=== PATIENT | female | born 1960 | race Caucasian/White ===

== ENCOUNTER 2023-07-20 14:06 | Emergency (ER) | payer MEDICARE, MEDICAID, SELFPAY ==
--- NOTE | 2023-07-20 14:22 | XRR_ITS ---
PROCEDURE INFORMATION: Exam: XR Chest Exam date and time: 07/20/2023 2:46 PM Age: 63 years old Clinical indication: Screening exam; Other screening; Additional info: HX of copd TECHNIQUE: Imaging protocol: Radiologic exam of the chest. Views: 1 view. COMPARISON: No relevant prior studies available. FINDINGS: Lungs: Both lungs demonstrate diffuse hyperinflation along with chronic interstitial coarsening. A 1 cm rounded granuloma involves the left upper lung field but I see no other mass or infiltrate. Pleural spaces: Unremarkable. No pleural effusion. No pneumothorax. Heart/Mediastinum: Unremarkable. No cardiomegaly. Bones/joints: Unremarkable. XR/XR chest 1V portable [id number] IMPRESSION: 1. No acute findings. 2. COPD changes noted
--- NOTE | 2023-07-20 14:23 | ED.C_ITS ---
Documented by User: SAKSHI Klein 07/21/23 01:40 HPI - Psych 2 General: Chief Complaint: Psychiatric Symptoms Stated Complaint: MHE Time Seen by Provider: 07/20/23 14:07 Source: patient Mode of arrival: EMS Limitations: no limitations History of Present Illness: Patient is a 63-year-old female who presents to the emergency department via ambulance complaining of suicidal ideations for the past few days. She notes that she has been suicidal for a long time but that this has worsened since going to a senior living. She notes she was recently discharged from psychiatric facility at the beginning of July, and initially everything was going okay but over the past few days she has had thoughts of want to kill herself, and last night cut herself with a piece of glass to her left wrist. She is denying any homicidal ideations or hallucinations. She notes that she is extremely anxious and that the medication she is on have not been working. She does note changes to her medication recently stemming from discharge from the psychiatric facility. She notes that she has been hospitalized here before a few years ago. When asked about cutting last night, she states that it was an attempt that she did not cut deep enough. She does have a history of COPD and is on 2 L at all times, though denies any increase in shortness of breath or other medical symptoms at this time. She does state that she wants to hospitalized and seen by psychiatrist due to her increasing suicidal thoughts. Prior to yesterday she does note history of attempting suicide in the past though does not elaborate. Denies any recent drug or alcohol use, though does states she picked up smoking again due to her increase in anxiety and depression. All other questions and concerns addressed. MD complaint: suicidal ideation and feels depressed Onset (ago): day(s) Duration: constant History of same: Yes Relieving factors: none Associated psychiatric symptoms: depression, suicidal ideation and homicidal ideation Associated symptoms: Reports depression and suicidal ideation; Deny auditory hallucinations, visual hallucinations or homicidal ideation If self harm: admits thoughts of self harm Review of Systems 2 General: Reports: 10 or more systems reviewed and unremarkable except in HPI and below Const: Denies: fever(s), chills or fatigue Eyes: Denies: change in vision ENMT: Denies: throat pain, ear or mastoid pain or nasal discharge Card: Denies: chest pain, palpitations, swelling of feet/ankles or lightheadedness Resp: Denies: dyspnea, productive cough or wheezing GI: Denies: abdominal pain, nausea, vomiting, diarrhea or constipation : Denies: flank pain, difficulty voiding, dysuria or urinary frequency Musc: Denies: neck pain, back pain or joint pain Skin/Breast: Reports: new lesions (Superficial cuts to left wrist); Denies: rash Neuro: Denies: headache(s), numbness in extremities or weakness in extremities Psych: Reports: anxiety, depression and suicidal ideation; Denies: visual hallucinations, auditory hallucinations, tactile hallucinations or homicidal ideation Physical Exam 2 Const: COMMON NORMALS: no acute distress, patient oriented x3 and no limitations GENERAL APPEARANCE: cooperative, comfortable and well developed ORIENTATION/CONSCIOUSNESS: Yes awake, Yes oriented to person, Yes oriented to place and Yes oriented to time HENMT: COMMON NORMALS: normocephalic, atraumatic and hearing grossly normal bilaterally HEAD & SCALP: normocephalic and atraumatic Eye: COMMON NORMALS: Equal, round and reactive pupils present, EOMs intact bilaterally and conjunctivae normal CONJUNCTIVA: Yes conjunctivae normal P UPIL: Yes Equal, round and reactive pupils present Neck/C-Spine: COMMON NORMALS: full ROM, supple and no JVD Resp: COMMON NORMALS: normal respiratory effort, No retractions, No use of accessory muscles and clear to auscultation bilaterally AUSCULTATION: clear to auscultation bilaterally Cardio: COMMON NORMALS: no JVD, regular rate, regular rhythm, No clicks present (Cardio), No murmurs present (Cardio) and No rub (Cardio) RATE: r egular rate RHYTHM: regular rhythm GI: COMMON NORMALS: Normal to inspection, nondistended, normoactive bowel sounds present, Soft to palpation and non-tender AUSCULTATION: Yes normoactive bowel sounds PALPATION: Yes Soft to palpation RECTAL EXAM: d eferred Extremity: COMMON NORMALS: normal to inspection, full ROM and capillary refill normal Neuro: COMMON NORMALS: patient oriented x3, CN's II-XII intact bilaterally, moves all extremities, no focal motor deficits and no sensory deficits noted SENSORIUM/ORIENTATION: Yes oriented to person, Yes oriented to place and Yes oriented to time Psych: COMMON NORMALS: mental status grossly normal and speech normal A TTITUDE: Yes calm ACTIVITY/MOTOR BEHAVIOR: Yes psychomotor agitation S PEECH: Yes normal speech MOOD & AFFECT: Yes depressed mood and Yes anxious THOUGHT CONTENT: Yes Suicidality present, No Homicidality present and No Hallucination(s) present ATTENTION/CONCENTRATION: Yes attention grossly intact MEMORY/COGNITION: Yes memory grossly intact Skin: NARRATIVE SKIN EXAM: 4 superficial linear lacerations noted t o the volar aspect of the left wrist. No active bleeding. No gaping of the wounds. No foreign body. Course 2 Vital Signs: Vital signs: Vital Signs Temperature 97.6 F 07/20/23 14:35 Pulse Rate 68 07/21/23 08:33 Respiratory Rate 16 07/21/23 08:33 Blood Pressure 165/101 07/21/23 06:07 Pulse Oximetry 96 07/21/23 08:33 Oxygen Delivery Me thod Room Air 07/21/23 08:33 Oxygen Flow Rate 3 07/21/23 06:07 [facility] - Psych Medical Decision Making Patient transferred to short-term psychiatric facility for further evaluation. Sodium was found to be low, corrected with IV fluids. Lab Data I reviewed the patient's lab results. 07/20/23 15:05 07/21/23 00:47 Radiology Impressions Chest X-Ray 07/20/23 14:22 IMPRESSION: 1. No acute findings. 2. COPD changes noted Laboratory Results WBC 9.64 10^3/uL (3.29-11.43) 07/20/23 15:05 RBC 5.11 10^6/uL (3.85-5.65) 07/20/23 15:05 Hgb 13.70 g/dL (11.27-16.99) 07/20/23 15:05 Hct 42.5 % (36-47) 07/20/23 15:05 MCV 83.2 fl (85-98) L 07/20/23 15:05 MCH 26.8 pg (27-33) L 07/20/23 15:05 MCHC 32.2 g/dL (30-55) 07/20/23 15:05 RDW 15.1 % (12.1-15.1) 07/20/23 15:05 Plt Count 367 10^3/cmm (157-399) 07/20/23 15:05 MPV 9.0 fL (7.4-10.4) 07/20/23 15:05 Neut % (Auto) 74.4 % 07/20/23 15:05 Lymph % (Auto) 10.6 % 07/20/23 15:05 [place] % (Auto) 12.0 % 07/20/23 15:05 Eos % (Auto) 1.9 % 07/20/23 15:05 Baso % (Auto) 0.4 % 07/20/23 15:05 Neut # (Auto) 7.17 10^3/uL (1.8-7.7) 07/20/23 15:05 Lymph # (Auto) 1.0 10^3/uL (0.8-4.8) 07/20/23 15:05 [place] # (Auto) 1.2 10^3/uL (0.2-0.9) H 07/20/23 15:05 Eos # (Auto) 0.2 10^3/uL (0.0-0.8) 07/20/23 15:05 Baso # (Auto) 0.0 10^3/uL (0.0-0.1) 07/20/23 15:05 Nucleated RBC % (auto) 0 % 07/20/23 15:05 Nucleated RBCs # 0.0 /100WBC 07/20/23 15:05 Sodium 141 mmol/L (136-145) 07/21/23 00:47 Potassium 4.4 mmol/L (3.5-5.1) 07/21/23 00:47 Chloride 106 mmol/L (98-107) 07/21/23 00:47 Carbon Dioxide 28 mmol/L (22-29) 07/21/23 00:47 Anion Gap 11.4 (5-19) 07/21/23 00:47 BUN 20 mg/dL (8-23) 07/21/23 00:47 Creatinine 0.6 mg/dL (0.5-0.9) 07/21/23 00:47 GFR Calculation 100.6 mL/min (90-130) 07/21/23 00:47 Glucose 102 mg/dL (65-115) 07/21/23 00:47 Calculated Osmolality 295 mOsm/kg (285-295) 07/21/23 00:47 Calcium 8.9 mg/dL (8.5-10.5) 07/21/23 00:47 Total Bilirubin 0.2 mg/dL (0.15-1.2) 07/20/23 15:05 AST 21 U/L (0-32) 07/20/23 15:05 ALT 10 U/L (0-33) 07/20/23 15:05 Alkaline Phosphatase 96 U/L (35-105) 07/20/23 15:05 Total Protein 7.0 g/dL (6.6-8.7) 07/20/23 15:05 Albumin 3.5 g/dL (3.5-5.2) 07/20/23 15:05 Globulin 3.5 g/dL (1.3-4.6) 07/20/23 15:05 Vitamin B12 776 pg/mL (232-1245) 07/20/23 15:05 TSH 1.09 uIU/mL (0.27-4.20) 07/20/23 15:05 Salicylates 0.7 mg/dL (3-10) L 07/20/23 15:05 Urine Opiates Screen Negative ng/mL (Negative) 07/20/23 14:11 Acetaminophen < 5.0 ug/mL (10-30) L 07/20/23 15:05 Ur Barbiturates Screen Negative ng/mL (Negative) 07/20/23 14:11 Ur Phencyclidine Scrn Negative ng/mL (Negative) 07/20/23 14:11 Ur Amphetamines Screen Negative ng/mL (Negative) 07/20/23 14:11 U Benzodiazepines Scrn Negative ng/mL (Negative) 07/20/23 14:11 Urine Cocaine Screen Negative ng/mL (Negative) 07/20/23 14:11 U Marijuana (THC) Screen Negative ng/mL (Negative) 07/20/23 14:11 Ethyl Alcohol < 10 mg/dL (0-10) 07/20/23 15:05 RSV Antigen Negative (Negative) 07/20/23 18:10 SARS-CoV-2 Ag (Rapid) negative (Negative) 07/20/23 18:10 All radiology interpretation(s) finalized by discharge Discharge Plan Discharge Patient Disposition: Xfer Psychiatric Hosp Clinical Impression: Suicidal ideation Condition: Stable Sign Out Sign Out Data: Patient Sign Out occurred on 07/21/23 at 06:56. Patient's care was discussed, and care was transferred from SAKSHI Klein to Anatoly Edwards DO. Coding Level of Care Code ED Associate Professor Of Anthropology for Chg Fwd Documented by User: Anatoly Edwards DO 07/21/23 07:11 HPI - Psych 2 General: Chief Complaint: Psychiatric Symptoms Stated Complaint: MHE Time Seen by Provider: 07/20/23 14:07 Course 2 Vital Signs: Vital signs: Vital Signs Temperature 97.6 F 07/20/23 14:35 Pulse Rate 68 07/21/23 08:33 Respiratory Rate 16 07/21/23 08:33 Blood Pressure 165/101 07/21/23 06:07 Pulse Oximetry 96 07/21/23 08:33 Oxygen Delivery Me thod Room Air 07/21/23 08:33 Oxygen Flow Rate 3 07/21/23 06:07 MDM - Psych Medical Decision Making Patient transferred to short-term psychiatric facility for further evaluation. Sodium was found to be low, corrected with IV fluids. Chart reviewed. Patient accepted at [place] pending transportation services. Lab Data 07/20/23 15:05 07/21/23 00:47 Radiology Impressions Chest X-Ray 07/20/23 14:22 IMPRESSION: 1. No acute findings. 2. COPD changes noted Laboratory Results WBC 9.64 10^3/uL (3.29-11.43) 07/20/23 15:05 RBC 5.11 10^6/uL (3.85-5.65) 07/20/23 15:05 Hgb 13.70 g/dL (11.27-16.99) 07/20/23 15:05 Hct 42.5 % (36-47) 07/20/23 15:05 MCV 83.2 fl (85-98) L 07/20/23 15:05 MCH 26.8 pg (27-33) L 07/20/23 15:05 MCHC 32.2 g/dL (30-55) 07/20/23 15:05 RDW 15.1 % (12.1-15.1) 07/20/23 15:05 Plt Count 367 10^3/cmm (157-399) 07/20/23 15:05 MPV 9.0 fL (7.4-10.4) 07/20/23 15:05 Neut % (Auto) 74.4 % 07/20/23 15:05 Lymph % (Auto) 10.6 % 07/20/23 15:05 [place] % (Auto) 12.0 % 07/20/23 15:05 Eos % (Auto) 1.9 % 07/20/23 15:05 Baso % (Auto) 0.4 % 07/20/23 15:05 Neut # (Auto) 7.17 10^3/uL (1.8-7.7) 07/20/23 15:05 Lymph # (Auto) 1.0 10^3/uL (0.8-4.8) 07/20/23 15:05 [place] # (Auto) 1.2 10^3/uL (0.2-0.9) H 07/20/23 15:05 Eos # (Auto) 0.2 10^3/uL (0.0-0.8) 07/20/23 15:05 Baso # (Auto) 0.0 10^3/uL (0.0-0.1) 07/20/23 15:05 Nucleated RBC % (auto) 0 % 07/20/23 15:05 Nucleated RBCs # 0.0 /100WBC 07/20/23 15:05 Sodium 141 mmol/L (136-145) 07/21/23 00:47 Potassium 4.4 mmol/L (3.5-5.1) 07/21/23 00:47 Chloride 106 mmol/L (98-107) 07/21/23 00:47 Carbon Dioxide 28 mmol/L (22-29) 07/21/23 00:47 Anion Gap 11.4 (5-19) 07/21/23 00:47 BUN 20 mg/dL (8-23) 07/21/23 00:47 Creatinine 0.6 mg/dL (0.5-0.9) 07/21/23 00:47 GFR Calculation 100.6 mL/min (90-130) 07/21/23 00:47 Glucose 102 mg/dL (65-115) 07/21/23 00:47 Calculated Osmolality 295 mOsm/kg (285-295) 07/21/23 00:47 Calcium 8.9 mg/dL (8.5-10.5) 07/21/23 00:47 Total Bilirubin 0.2 mg/dL (0.15-1.2) 07/20/23 15:05 AST 21 U/L (0-32) 07/20/23 15:05 ALT 10 U/L (0-33) 07/20/23 15:05 Alkaline Phosphatase 96 U/L (35-105) 07/20/23 15:05 Total Protein 7.0 g/dL (6.6-8.7) 07/20/23 15:05 Albumin 3.5 g/dL (3.5-5.2) 07/20/23 15:05 Globulin 3.5 g/dL (1.3-4.6) 07/20/23 15:05 Vitamin B12 776 pg/mL (232-1245) 07/20/23 15:05 TSH 1.09 uIU/mL (0.27-4.20) 07/20/23 15:05 Salicylates 0.7 mg/dL (3-10) L 07/20/23 15:05 Urine Opiates Screen Negative ng/mL (Negative) 07/20/23 14:11 Acetaminophen < 5.0 ug/mL (10-30) L 07/20/23 15:05 Ur Barbiturates Screen Negative ng/mL (Negative) 07/20/23 14:11 Ur Phencyclidine Scrn Negative ng/mL (Negative) 07/20/23 14:11 Ur Amphetamines Screen Negative ng/mL (Negative) 07/20/23 14:11 U Benzodiazepines Scrn Negative ng/mL (Negative) 07/20/23 14:11 Urine Cocaine Screen Negative ng/mL (Negative) 07/20/23 14:11 U Marijuana (THC) Screen Negative ng/mL (Negative) 07/20/23 14:11 Ethyl Alcohol < 10 mg/dL (0-10) 07/20/23 15:05 RSV Antigen Negative (Negative) 07/20/23 18:10 SARS-CoV-2 Ag (Rapid) negative (Negative) 07/20/23 18:10 Discharge Plan Discharge Patient Disposition: Xfer Psychiatric Hosp Clinical Impression: Suicidal ideation Condition: Stable Sign Out Sign Out Data: Patient Sign Out occurred on 07/21/23 at 06:56. Patient's care was discussed, and care was transferred from SAKSHI Klein to Anatoly Edwards DO. Coding Level of Care Code ED Associate Professor Of Anthropology for Chg Fwd Documented by User: Heath Rivas DO 07/21/23 16:30 HPI - Psych 2 General: Chief Complaint: Psychiatric Symptoms Stated Complaint: MHE Time Seen by Provider: 07/20/23 14:07 Course 2 Vital Signs: Vital signs: Vital Signs Temperature 97.6 F 07/20/23 14:35 Pulse Rate 68 07/21/23 08:33 Respiratory Rate 16 07/21/23 08:33 Blood Pressure 165/101 07/21/23 06:07 Pulse Oximetry 96 07/21/23 08:33 Oxygen Delivery Me thod Room Air 07/21/23 08:33 Oxygen Flow Rate 3 07/21/23 06:07 MDM - Psych Medical Decision Making Patient transferred to short-term psychiatric facility for further evaluation. Sodium was found to be low, corrected with IV fluids. she expressed a wish to leave at one point, amd so was placed under 96h hold due to her suicidality. Chart reviewed. Patient accepted at [place] pending transportation services. Lab Data 07/20/23 15:05 07/21/23 00:47 Radiology Impressions Chest X-Ray 07/20/23 14:22 IMPRESSION: 1. No acute findings. 2. COPD changes noted Laboratory Results WBC 9.64 10^3/uL (3.29-11.43) 07/20/23 15:05 RBC 5.11 10^6/uL (3.85-5.65) 07/20/23 15:05 Hgb 13.70 g/dL (11.27-16.99) 07/20/23 15:05 Hct 42.5 % (36-47) 07/20/23 15:05 MCV 83.2 fl (85-98) L 07/20/23 15:05 MCH 26.8 pg (27-33) L 07/20/23 15:05 MCHC 32.2 g/dL (30-55) 07/20/23 15:05 RDW 15.1 % (12.1-15.1) 07/20/23 15:05 Plt Count 367 10^3/cmm (157-399) 07/20/23 15:05 MPV 9.0 fL (7.4-10.4) 07/20/23 15:05 Neut % (Auto) 74.4 % 07/20/23 15:05 Lymph % (Auto) 10.6 % 07/20/23 15:05 [place] % (Auto) 12.0 % 07/20/23 15:05 Eos % (Auto) 1.9 % 07/20/23 15:05 Baso % (Auto) 0.4 % 07/20/23 15:05 Neut # (Auto) 7.17 10^3/uL (1.8-7.7) 07/20/23 15:05 Lymph # (Auto) 1.0 10^3/uL (0.8-4.8) 07/20/23 15:05 [place] # (Auto) 1.2 10^3/uL (0.2-0.9) H 07/20/23 15:05 Eos # (Auto) 0.2 10^3/uL (0.0-0.8) 07/20/23 15:05 Baso # (Auto) 0.0 10^3/uL (0.0-0.1) 07/20/23 15:05 Nucleated RBC % (auto) 0 % 07/20/23 15:05 Nucleated RBCs # 0.0 /100WBC 07/20/23 15:05 Sodium 141 mmol/L (136-145) 07/21/23 00:47 Potassium 4.4 mmol/L (3.5-5.1) 07/21/23 00:47 Chloride 106 mmol/L (98-107) 07/21/23 00:47 Carbon Dioxide 28 mmol/L (22-29) 07/21/23 00:47 Anion Gap 11.4 (5-19) 07/21/23 00:47 BUN 20 mg/dL (8-23) 07/21/23 00:47 Creatinine 0.6 mg/dL (0.5-0.9) 07/21/23 00:47 GFR Calculation 100.6 mL/min (90-130) 07/21/23 00:47 Glucose 102 mg/dL (65-115) 07/21/23 00:47 Calculated Osmolality 295 mOsm/kg (285-295) 07/21/23 00:47 Calcium 8.9 mg/dL (8.5-10.5) 07/21/23 00:47 Total Bilirubin 0.2 mg/dL (0.15-1.2) 07/20/23 15:05 AST 21 U/L (0-32) 07/20/23 15:05 ALT 10 U/L (0-33) 07/20/23 15:05 Alkaline Phosphatase 96 U/L (35-105) 07/20/23 15:05 Total Protein 7.0 g/dL (6.6-8.7) 07/20/23 15:05 Albumin 3.5 g/dL (3.5-5.2) 07/20/23 15:05 Globulin 3.5 g/dL (1.3-4.6) 07/20/23 15:05 Vitamin B12 776 pg/mL (232-1245) 07/20/23 15:05 TSH 1.09 uIU/mL (0.27-4.20) 07/20/23 15:05 Salicylates 0.7 mg/dL (3-10) L 07/20/23 15:05 Urine Opiates Screen Negative ng/mL (Negative) 07/20/23 14:11 Acetaminophen < 5.0 ug/mL (10-30) L 07/20/23 15:05 Ur Barbiturates Screen Negative ng/mL (Negative) 07/20/23 14:11 Ur Phencyclidine Scrn Negative ng/mL (Negative) 07/20/23 14:11 Ur Amphetamines Screen Negative ng/mL (Negative) 07/20/23 14:11 U Benzodiazepines Scrn Negative ng/mL (Negative) 07/20/23 14:11 Urine Cocaine Screen Negative ng/mL (Negative) 07/20/23 14:11 U Marijuana (THC) Screen Negative ng/mL (Negative) 07/20/23 14:11 Ethyl Alcohol < 10 mg/dL (0-10) 07/20/23 15:05 RSV Antigen Negative (Negative) 07/20/23 18:10 SARS-CoV-2 Ag (Rapid) negative (Negative) 07/20/23 18:10 Discharge Plan Discharge Patient Disposition: er Psychiatric Hosp Clinical Impression: Suicidal ideation Condition: Stable Sign Out Sign Out Data: Patient Sign Out occurred on 07/21/23 at 06:56. Patient's care was discussed, and care was transferred from SAKSHI Klein to Anatoly Edwards DO. Coding Level of Care Code ED Associate Professor Of Anthropology for Ari Coreas
[2023-07-20 14:35] VITALS: BP 138/87; PULSE 84; RESP 18; TEMP 36.4; O2SAT 95
--- NOTE | 2023-07-20 14:43 | ECG_ITS ---
[facility] Test Date: 2023-07-20 Pat Name: Karen Wells Department: Room: Gender: Female Management Professional: : 1960 Requested By: Tristan England Order Number: [id number] Deniz MD: Melo Mcrae M.D. Measurements Intervals [place] Rate: 82 P: 74 HI: 128 QRS: 98 QRSD: 95 T: 73 QT: 369 QTc: 432 Interpretive Statements SINUS RHYTHM Normal EKG No previous ECG available for comparison Electronically Signed On 07-21-2023 13:49:27 CDT by Melo Mcrae M.D. [id number]
[2023-07-20] MEDS: LORazepam 1 mg Tablet PO (14:46)
[2023-07-20 14:57] LABS: Amphetamines Screen Urine Negative (Negative); Barbiturates Screen Urine Negative (Negative); Benzodiazepines Screen Urine Negative (Negative); Cocaine Screen Urine Negative (Negative); Opiate Screen Urine Negative (Negative); PCP Screen Urine Negative (Negative); THC Screen Urine Negative (Negative)
[2023-07-20 15:34] LABS: Basophils % 0.4 %; Eosinophils # 0.2 10^3/uL (0.0-0.8); Eosinophils % 1.9 %; Hematocrit 42.5 % (36-47); Lymphocytes % 10.6 %; Mean Corpuscular HGB Conc 32.2 g/dL (30-55); Mean Corpuscular Hemoglobin 26.8 pg (27-33); Mean Corpuscular Volume 83.2 fl (85-98); Monocytes # 1.2 10^3/uL (0.2-0.9); Neutrophils # 7.17 10^3/uL (1.8-7.7); Neutrophils % 74.4 %; Nucleated Red Blood Cells % 0 %; Platelet Count 367 10^3/cmm (157-399); Red Blood Count 5.11 10^6/uL (3.85-5.65); Red Cell Distribution Width 15.1 % (12.1-15.1); White Blood Count 9.64 10^3/uL (3.29-11.43)
[2023-07-20 15:51] LABS: Alanine Aminotransferase 10 U/L (0-33); Albumin Level 3.5 g/dL (3.5-5.2); Alkaline Phosphatase 96 U/L (35-105); Blood Urea Nitrogen 14 mg/dL (8-23); Calcium 9.6 mg/dL (8.5-10.5); Carbon Dioxide 26 mmol/L (22-29); Chloride 96 mmol/L (98-107); Globulin 3.5 g/dL (1.3-4.6); Glomerular Filtration Rate 124.2 mL/min (90-130); Glucose 99 mg/dL (65-115); Osmolality Calculated 273 mOsm/kg (285-295); Salicylate 0.7 mg/dL (3-10); Sodium 131 mmol/L (136-145); Total Bilirubin 0.2 mg/dL (0.15-1.2)
[2023-07-20 15:52] LABS: Acetaminophen < 5.0 ug/mL (10-30); Alcohol Level < 10 mg/dL (0-10)
[2023-07-20 15:53] LABS: Anion Gap 13.4 (5-19); Aspartate Amino Transferase 21 U/L (0-32); Potassium 4.4 mmol/L (3.5-5.1)
[2023-07-20 18:07] VITALS: PULSE 78; RESP 18; O2SAT 95
[2023-07-20 18:22] LABS: Thyroid Stimulating Hormone 1.09 uIU/mL (0.27-4.20); Vitamin B12 776 pg/mL (232-1245)
[2023-07-20 18:41] LABS: SARS Covid-2 Antigen negative (Negative)
[2023-07-20 18:45] LABS: RSV Transfer Patient (ED) Negative (Negative)
--- NOTE | 2023-07-20 19:48 | PC.NURSE ---
PT PLACED IN ROOM 9. PT PLACED ON WALL O2 AT 3L PER PT.
[2023-07-20] MEDS: sodium chloride 0.9% 1,000 ML 999 ML IV (22:28)
[2023-07-21 01:53] LABS: Anion Gap 11.4 (5-19); Blood Urea Nitrogen 20 mg/dL (8-23); Calcium 8.9 mg/dL (8.5-10.5); Carbon Dioxide 28 mmol/L (22-29); Chloride 106 mmol/L (98-107); Glomerular Filtration Rate 100.6 mL/min (90-130); Glucose 102 mg/dL (65-115); Osmolality Calculated 295 mOsm/kg (285-295); Potassium 4.4 mmol/L (3.5-5.1); Sodium 141 mmol/L (136-145)
[2023-07-21 02:32] VITALS: BP 139/85; PULSE 88; RESP 18; O2SAT 94
--- NOTE | 2023-07-21 06:03 | PC.NURSE ---
0603- 96 Hour Involuntary Hold Patient Rights have been read to the patient and a copy of the same has been given to her. Grinder [employer] Operator [employer] Mercedes Luciano was present at bedside at the time of presentation of Rights.
[2023-07-21 06:07] VITALS: BP 165/101; PULSE 81; O2SAT 95
--- NOTE | 2023-07-21 06:16 | PC.NURSE ---
Report was called to Aishwarya Cates RN at [facility]. All questions and concerns were addressed at time of report.
--- NOTE | 2023-07-21 08:14 | PC.NURSE ---
Jerry notified of pt requesting anxiety medication
[2023-07-21 08:33] VITALS: PULSE 68; RESP 16; O2SAT 96
[2023-07-21] MEDS: sertraline 100 mg Tablet 200 MG PO (09:18)
[2023-07-21] MEDS: OLANZapine 10 mg TABLET 20 MG PO (09:18)
[2023-07-21] MEDS: LORazepam 2 mg Tablet PO (09:19)
[2023-07-21 16:42] VITALS: PULSE 76; RESP 16; O2SAT 98
[2023-07-21 16:43] VITALS: BP 141/73
== END 2023-07-21 18:25 ==
PROVIDERS: Physician Assistant; Emergency Provider Family Medicine
DX: R45.851 Suicidal ideations (principal); Z11.52 Encounter for screening for COVID-19; E87.1 Hypo-osmolality and hyponatremia
CPT/HCPCS: 36415; 71045; 80048; 80053; 80306; 80307; 82607; 84443; 85025; 87426; 87899; 93005; 99285; J7030